=== PATIENT | male | born 1950 | race American Indian/Alaskan Native ===

== ENCOUNTER 2018-08-17 09:11 | Outpatient (CLI) | payer MEDICARE | END 2018-08-17 09:12 | disposition home or self-care (01) | LOC: C.PAT 09:11 | DX: N18.6 End stage renal disease (principal) ==

== ENCOUNTER 2018-08-22 05:40 | Day surgery (SDC) | payer MEDICARE ==
[2018-08-22 06:38] VITALS: BMI 27.5
[2018-08-22 06:58] LABS: CALCIUM 9.3 mg/dl (8.6-10.4)
[2018-08-22] MEDS ORDERED: Papaverine Hydrochloride 30 mg/ml (2ml) ONE (07:44)
[2018-08-22] MEDS ORDERED: HEPARIN-NS 5,000 UNITS/500 ML 5,000 UNIT/500 ML BAG IV ONE (07:44)
[2018-08-22] MEDS ORDERED: Propofol 10 mg/ml Inj (20 ML) ONE (08:03)
[2018-08-22] MEDS ORDERED: Midazolam 2 MG/2 ML VIAL ONE (08:03)
[2018-08-22] MEDS ORDERED: ceFAZolin 1 gm in NS 1 GM/100 ML BAG IVPB ONE (08:15)
[2018-08-22] MEDS ORDERED: HYDROmorphone 0.5 mg/0.5 ml ISec IVP PRN (09:55)
[2018-08-22] MEDS ORDERED: Oxycodone/Acetaminophen 5/325 mg Tab PO PRN (09:56)
--- NOTE | 2018-08-22 10:00 | PCM.SURG1 ---
Surgeon's Initial Post Op Note - Surgeon's Notes Surgeon: Dr. Oliver Ring Cutter Lathe Operator: Salud PGY2 Type of Anesthesia: General LMA Anesthesia Administered By: JUSTIN Vazquez CRNA Pre-Operative Diagnosis: ESRD requiring HD Operative Findings: patent L radial artery and L cephalic vein in wrist, L bob AVF with palpable thrill and good pulse Post-Operative Diagnosis: ESRD requiring HD Operation Performed: L bob AVF creation Specimen/Specimens Removed: N/A Estimated Blood Loss: EBL {In ML}: 15 Blood Products Given: N/A Drains Used: No Drains Post-Op Condition: Good Date of Surgery/Procedure: 08/22/18 Time of Surgery/Procedure: 10:00
[2018-08-22 11:34] VITALS: BP 164/74; PULSE 86; RESP 18; TEMP 97; O2SAT 96
--- NOTE | 2018-08-22 21:35 | OP ---
PROCEDURE DATE: 08/22/2018 PREOPERATIVE DIAGNOSIS: Renal failure. POSTOPERATIVE DIAGNOSIS: Renal failure. PROCEDURE CARRIED OUT: Snuffbox fistula, left wrist. SURGEON: Leandro Oliver Jr., MD MACHINE FILLER: Sanjiv Brannon DO ANESTHESIOLOGIST: Sascha Horn MD INDICATIONS: The patient is an older middle-age man with renal insufficiency, soon to require dialysis. OPERATIVE FINDINGS: Fistula was created between the branches of superficial radial artery and the adjacent cephalic vein in the anatomic snuffbox. The anastomosis was carried out using loop magnification and heparin anticoagulation. At the end of the procedure, there was good flow through the fistula. DESCRIPTION OF PROCEDURE: The patient was given general anesthesia. These made his vessels dilated quite a bit. The vessels were then clearly anastomosed in an end-to-side fashion using loop magnification and heparin anticoagulation. We probed both the afferent and efferent arteries at the end with a probe to make sure that there is adequate inflow and no stricture from the loop use. After completing the anastomosis and obtaining hemostasis, we did not reverse the heparin, we then closed the skin with 5-0 nylon sutures. Blood loss was 15 mL. Leandro Oliver Jr., MD cc: Dr. Paez
== END 2018-08-22 13:11 | disposition home or self-care (01) ==
LOC: C.SDS 05:40
PROVIDERS: ATTEND Surgery Vascular Surgery
DX: I12.0 Hypertensive chronic kidney disease with stage 5 chronic kidney disease or end stage renal disease (principal); E11.22 Type 2 diabetes mellitus with diabetic chronic kidney disease; N18.6 End stage renal disease
CPT/HCPCS: 36415; 36821; 80048; 82948; J0690; J1644; J2250; J2704; J3010